=== PATIENT | female | born 1955 | race Caucasian/White ===

== ENCOUNTER 2017-12-21 06:04 | Day surgery (SDC) | payer BC ==
[~2017-12-21 06:04] MED LIST: Buffered Lidocaine 0.9% SYRIN* 5 ML/SYR SYRINGE INTRADERM ONE
[2017-12-21] MEDS ORDERED: Lidocaine 2% PF * 5 ML VIAL ONE (06:58)
[2017-12-21] MEDS ORDERED: Propofol* 500 MG/50 ML BTL ONE (06:58)
[2017-12-21] MEDS ORDERED: Midazolam* 1 MG/ML 2 ML VIAL (2 MG) ONE (06:58)
[2017-12-21] MEDS ORDERED: KETAMINE HCL* 50 MG/ML 10 ML VIAL ONE (06:58)
[2017-12-21] MEDS ORDERED: Propofol* 10 MG/ML 20 ML BTL IV PUSH ONE (06:58)
[2017-12-21] MEDS ORDERED: fentaNYL* 50 MCG/ML 2 ML VIAL (100 MCG VIAL) ONE ×2 (06:59→09:24)
[2017-12-21] MEDS ORDERED: ceFAZolin 2 GM PREMIX in ORs 2 GM/50 ML BAG IVPB ONE (07:17)
[2017-12-21] MEDS ORDERED: Bupivacaine 0.5% SDV PF* 30ML VIAL ONE (07:28)
[2017-12-21] MEDS ORDERED: oxyCODONE TAB* 5 MG TAB PO PRN (08:13)
[2017-12-21] MEDS ORDERED: Ondansetron INJ* 2 MG/ML VIAL ONE ×2 (08:13→09:48)
[2017-12-21] MEDS ORDERED: fentaNYL* 50 MCG/ML 2 ML VIAL (100 MCG VIAL) IV PRN (08:13)
[2017-12-21] MEDS ORDERED: Metoclopramide IV* 5 MG/ML 2 ML VIAL ONE ×2 (08:13→09:48)
[2017-12-21] MEDS ORDERED: Acetaminophen TAB* 325 MG PO PRN (08:13)
[2017-12-21] MEDS ORDERED: Dexamethasone IV* 4 MG/ML 1 ML (4 MG) ONE ×2 (08:13→09:48)
[2017-12-21] MEDS ORDERED: DiMENhydriNATE IV* 50 MG/ML VIAL IV PUSH PRN (08:13)
[2017-12-21] MEDS ORDERED: Naloxone* 0.4 MG/ML 1 ML VIAL IV PRN (08:13)
[2017-12-21] MEDS ORDERED: oxyCODONE TAB* 5 MG TAB ONE (09:24)
[2017-12-21] MEDS ORDERED: EPHEDrine (Pressors)* 50 MG/ML VIAL ONE (09:32)
[2017-12-21 10:11] VITALS: BP 120/72
--- NOTE | 2017-12-22 05:10 | OP ---
DATE OF OPERATION: 12/21/17 - [facility] DATE OF : 53 SURGEON: Connor Ross MD. FLAG DECORATOR: DANYELLE Walters. PRE-OP DIAGNOSIS: Painful hardware, left ankle. POST-OP DIAGNOSIS: Painful hardware, left ankle. OPERATIVE PROCEDURE: Removal of hardware, left ankle. DESCRIPTION OF PROCEDURE: The patient was taken to the operating room where general anesthesia was applied. We made a 6-cm longitudinal incision over the distal fibula where the small fragment of the screws were removed with appropriate screwdriver and the plate. At this point, the area was irrigated and closed with Vicryl and roseanna for the skin. Medially, a 3-cm incision was made at the medial malleolus where the two medial malleolar screws were removed with the washers. Similar closure after irrigation was performed medially and then a compression dressing applied. [id number] #: [id number] MTDD
== END 2017-12-21 10:12 | disposition home or self-care (01) ==
LOC: OR 06:04
PROVIDERS: ATTEND Orthopaedic Surgery
DX: T84.84XA Pain due to internal orthopedic prosthetic devices, implants and grafts, initial encounter (principal); Y83.1 Surgical operation with implant of artificial internal device as the cause of abnormal reaction of the patient, or of later complication, without mention of misadventure at the time of the procedure; S82.842D Displaced bimalleolar fracture of left lower leg, subsequent encounter for closed fracture with routine healing; X58.XXXD Exposure to other specified factors, subsequent encounter; Y92.9 Unspecified place or not applicable; F41.8 Other specified anxiety disorders; Z85.528 Personal history of other malignant neoplasm of kidney; D64.9 Anemia, unspecified
CPT/HCPCS: 88300; A9270-GY; J0690; J1100; J2250; J2405; J2704; J2765; J3010